=== PATIENT | female | born 1960 | race Caucasian/White ===

== ENCOUNTER 2024-02-19 15:29 | Emergency (ER) | payer BC, SELFPAY ==
[2024-02-19 15:33] VITALS: BP 209/108
[2024-02-19 15:36] VITALS: BP 192/99
[2024-02-19 16:00] VITALS: BP 142/90
[2024-02-19 16:54] VITALS: BP 169/109
--- NOTE | 2024-02-19 17:25 | ED.GENMED ---
History of Present Illness
General
Chief Complaint: Blood Pressure Problem
Source: patient and spouse
Time Seen by Provider: 02/19/24 17:06
History of Present Illness
History of Present Illness:
This patient is a 63-year-old female with a history of chronic sinusitis who states that in December she developed a URI associated with cough mucus production, although no fever. She was prescribed antibiotics and felt better. Then, about a week ago,
she again developed nasal congestion. She went to an urgent care today and was prescribed doxycycline and cetirizine. However, she was noted to be hypertensive with a pressure of 186/133 and was referred to the emergency department. Patient
states that in the last month she has taken a variety of tnnt-dpz-qlkvhqo medications but in the last week the only additions have been Mucinex and Tylenol Sinus. She is otherwise asymptomatic. She denies chest pain, dyspnea, severe headache, neck
pain, numbness, tingling, focal weakness, clumsiness, change in vision, change in speech, change in balance, change in urination, or other complaints.
Past History
Past History
ED Past Medical History: GERD, HTN and Hypercholesterolemia; Negative Asthma, CAD, Cancer, IDDM, NIDDM or UT
ED Past Surgical History: Orthopedic
Social History
Tobacco: Former smoker
Alcohol: None
Drug: None
Personal:
Living: with family
Employment: Employed
Family History
Family History: Negative Early CAD
Phy Exam
Physical Exam
Physical Exam:
GENERAL: Alert , in no apparent distress
EYE: pupils equal and reactive
NECK: Supple, no significant adenopathy.
ENT: o/p clr, mmm, obvious nasal congestion.
CARDIAC: Regular rate and rhythm with occasional skipped beats.
LUNGS: Clear breath sounds bilaterally, no acute respiratory distress, no wheezes/rales/rhonchi
ABDOMEN: Soft, without focal tenderness, no r/g, no cvat
NEUROLOGICAL: Alert and oriented, no focal neuro deficits, normal gait, htiskw-ks-[id number] normal, motor 5 out of 5, sensory intact, cranial nerves II through XII intact
SKIN: Warm and dry, skin intact.
MUSCULOSKELETAL: No edema, well perfused.
PSYCH: Normal and appropriate interaction.
Course
Orders/Labs/Results
Orders:
Orders
02/19/24 17:20
Electrocardiogram (*1) Urgent
Reason for Study: Other
Other Reason for Exam: htn
Vital Signs
Initial and Last Documented VS:
Initial Vital Signs
Temp Pulse Resp BP Pulse Ox
97.6 F 64 20 209/108 99
02/19/24 15:33 02/19/24 15:33 02/19/24 15:33 02/19/24 15:33 02/19/24 15:33
Last Documented Vital Signs
Temp Pulse Resp BP Pulse Ox
97.6 F 85 12 138/73 97
02/19/24 15:33 02/19/24 17:30 02/19/24 17:30 02/19/24 17:26 02/19/24 17:30
*Critical Care Note
Total Time (30-74mins, 75-104mins- exclusive of procedures): Not Applicable
Update Note
Update Note:
Patient presents to the Emergency Department with sinus congestion and hypertension
Number and Complexity of Problems Addressed at the Encounter
� Chronic conditions affecting care:
� Acute Exacerbation and/or Progression of Chronic Illness:
� Differential Diagnosis includes: But not limited to medication effect, sinusitis, hypertensive urgency, etc.
Amount and/or Complexity of Data to be Reviewed and Analyzed
� I performed an independent evaluation of and my interpretation is:
EKG: Read by me, normal sinus rhythm with frequent PVCs i.e. bigeminy, possible LVH, no acute ischemia
CT:
Xrays:
Laboratory Studies:
Other:
� Review of other/old records reveals:
� Clinical information was obtained by an independent historian: who is bedside, urgent care paperwork
� Prescriptions/Medications Considered but not given:
� Further testing considered but not performed:
Risk of Complications and/or Morbidity or Mortality of Patient Management
� Social determinants of health affecting care:
� Discussion with other providers (PCP, Hospitalists, Consultants, etc):
� Escalation of care including admission/observation vs risk of discharge considered: I suspect bigeminy is not a new finding for patient, she is asymptomatic with this. She describes having an EKG with extra beats when she was
getting clearance for her orthopedic surgery last year. The most recent one we had to compare to was from 12 years ago and not present at that time. Patient also notes that she is prescribed a diuretic for blood pressure in addition to her YANDEL
inhibitor, but is intermittently compliant with this. I emphasized to her the importance of regular BP checks, compliance with medications, follow-up with her doctor this week, and reasons to return to the ER. Most recent blood pressure 138/73 and
patient remains asymptomatic with the exception of nasal congestion
ED Attending Note
-
Portions of this chart may have been created with voice recognition software.� Occasional wrong word or��sound alike� substitutions may have occurred due to the inherent limitations of voice recognition software.
Discharge Plan
Departure
Patient Disposition: Home (Routine Discharge)
Date of Disposition: 02/19/24
Time of Disposition: 17:50
Patient with high blood pressure during this ER visit?: Yes
Condition: Good
Discharge Problem:
Hypertension
Instructions: High Blood Pressure (DC)
Prescriptions:
No Action
meclizine 25 MG tablet
25 mg PO [id number] PRN (Reason: nausea or vertigo) Qty: 20 0RF
Referrals:
Carlotta Estrada CRNP [Family Provider] - Follow up in 2-3 days
Activity Restrictions/Additional Instructions:
PLEASE SEE YOUR DOCTOR ON WEDNESDAY FOR A RECHECK OF YOUR BLOOD PRESSURE. TAKE YOUR MEDICATIONS PRESCRIBED. IF YOU DEVELOP DIZZINESS, CHEST PAIN, SHORTNESS OF BREATH, SEVERE HEADACHE, CHANGE IN VISION, CHANGE IN SPEECH, CHANGE IN BALANCE, OR OTHER
WORRISOME SIGNS, PLEASE RETURN TO THE ER IMMEDIATELY.
Interventions
Interventions:
ED- Cardiac Assessment Last Done: 02/19/24 17:19
ED- Neurological Assessment Last Done: 02/19/24 17:19
ED- Pulmonary Assessment Last Done: 02/19/24 17:19
Discharge Date and Time
Print Language: TAIWANESE
[2024-02-19 17:26] VITALS: BP 138/73
== END 2024-02-19 18:10 | disposition home or self-care (01) ==
LOC: EMR 15:29
PROVIDERS: EMERGENCY PHYSICIAN Emergency Medicine; FAMILY PHYSICIAN Nurse Practitioner Adult Health
DX: I10 Essential (primary) hypertension (principal); K21.9 Gastro-esophageal reflux disease without esophagitis; E78.00 Pure hypercholesterolemia, unspecified; I25.10 Atherosclerotic heart disease of native coronary artery without angina pectoris; E11.9 Type 2 diabetes mellitus without complications; Z87.891 Personal history of nicotine dependence
CPT/HCPCS: 99283; 93005